=== PATIENT | male | born 1945 | race Caucasian/White ===

== ENCOUNTER → 2020-10-09 12:46 | Outpatient (CLI) | payer MEDICARE, SELFPAY ==
--- NOTE | ~2020-10-09 | XR_ITS ---
XR chest 2V DATE: 10/09/2020 13:30 INDICATION: Nicotine dependence TECHNIQUE: PA and lateral views COMPARISON: 08/17/2018 2 view chest FINDINGS: Bilateral hyperinflation. Stable mild bilateral apical scarring. No pulmonary infiltrate or consolidation, pleural effusion or pulmonary vascular congestion or pneumothorax. Heart size is with in normal range. There is mild aortic calcification and unfolding. No hilar or mediastinal enlargemen t. Included skeletal structures are unremarkable other than and mild degenerative spurring of the thorac ic spine and osteopenia IMPRESSION: Bilateral moderate hyperinflation. No active disease or significant change since 9 Reviewed, dictated and finalized at location B. IMPRESSION: Bilateral moderate hyperinflation. No active disease or significant change since 08/17/2018
--- NOTE | ~2020-10-09 | XR_ITS ---
XR ankle RT min 3V DATE: 10/09/2020 13:30 INDICATION: Right ankle pain TECHNIQUE: 4 views COMPARISON: None FINDINGS: Slight plantar and mild posterior calcaneal enthesopathy. Probable chronic bony ossicle at the dorsal aspect of the talonavicular joint. No apparent recent fracture or dislocation of the ankle or disruption of the ankle mortise is noted o therwise. IMPRESSION: No apparent recent fracture or dislocation Calcaneal enthesopathy Reviewed, dictated and finalized at location B.
== END ==
PROVIDERS: PCP Internal Medicine; Visit Provider Internal Medicine
DX: Z87.891 Personal history of nicotine dependence (principal); M77.31 Calcaneal spur, right foot
CPT/HCPCS: 71046; 73610

== ENCOUNTER 2021-10-16 00:48 | Day surgery (SDC) | payer MEDICARE, SELFPAY ==
[2021-10-02 09:59] VITALS: BMI 24.3
[2021-10-16 09:06] VITALS: BP 139/79; PULSE 57; RESP 18; TEMP 36.6; O2SAT 100
[2021-10-16] MEDS: LACTATED RINGERS 1,000 ML 150 ML IV CONT (09:22)
--- NOTE | 2021-10-16 09:29 | WPDANESEPPF ---
Anes - Initial Pre Proc Eval Procedure: Operation Date: 10/16/21 10:00 Proposed Procedures p Colonoscopy - Rick Woodard MD Date/Time: 10/16/21 09:29 Surgeon: Rick Woodard MD Pre Op Diagnosis: diverticulitis, hx of colon polyps Patient Data Age: 75 Gender: M Height: 1.83 m Weight: 82.5 kg Last Vital Signs Temp 97.9 F 10/16/21 09:06 Pulse 57 L 10/16/21 09:06 Resp 18 10/16/21 09:06 BP 139/79 10/16/21 09:06 Pulse Ox 100 10/16/21 09:06 O2 Del Method Room Air 10/16/21 09:06 Allergies Allergy/AdvReac Type Severity Reaction Status Date / Time Iodinated Contrast Media Allergy Intermediate Rash Verified 10/16/21 09:00 Home Medications Medication Instructions Recorded Confirmed Type atorvastatin 10 mg tablet 5 mg PO DAILY 10/02/21 10/16/21 History cholecalciferol (vitamin D3) 1,250 50,000 unit PO WEEKLY 10/02/21 10/16/21 History mcg (50,000 unit) capsule furosemide 20 mg tablet 20 mg PO 3XW 10/02/21 10/16/21 History levothyroxine 50 mcg tablet 50 mcg PO DAILY 10/02/21 10/16/21 History (Euthyrox) losartan 100 mg tablet 100 mg PO DAILY 10/02/21 10/16/21 History nebivolol 10 mg tablet (Bystolic) 10 mg PO DAILY 10/02/21 10/16/21 History Patient hx anesthesia problems: none Family hx anesthesia problems: none Results Review: All pre-operative results and documents have been reviewed as part of the pre-operative evaluation. [facility] Social History Social History Smoking packs per day: 1 Smoking cigarettes per day: 20.0 Years smoked: 9 Smoking pack-years: 9.00 Smoking status: Former smoker Tobacco type: cigarettes Alcohol intake: current Alcohol use details: 2-3 drinks/month Substance use: never Substance use type: does not use Living arrangements: with family Spiritual care concerns: No Anes - Eval Final PreProcedure Day of Procedure 10/16/21 09:29 Patient weight: normal Heart: regular rate and rhythm Lungs: clear to auscultation Airway: Mallampati scale class II Neurological: alert and oriented Last oral intake: >/= 8 hours ASA classification: III Emergent: no Anesthetic plan: proceed Anesthesia type and monitoring: general GIVS and standard monitoring Results Review: All pre-operative results and documents have been reviewed as part of the pre-operative evaluation. Informed Consent: The patient's anesthetic plan and its attendant risks and benefits were discussed with the patient/family/POA. Questions were solicited and answers provided to the satisfaction of the patient/family/POA.
--- NOTE | 2021-10-16 09:46 | PM.HPGS ---
History of Present Illness History of Present Illness Consent: Risks, benefits, and alternatives have been discussed and questions answered. Patient agrees to proceed with procedure. Chief complaint: diverticulitis, hx of colon polyps Narrative: Rick Rivero is a 75 year old male Referred for colon cancer screening. He has a history of polyps. Two polyps we removed about 4 years ago. Review of Systems Review of Systems: All systems reviewed & are unremarkable except as noted in HPI and below PMFSH Social History Social History Smoking packs per day: 1 Smoking cigarettes per day: 20.0 Years smoked: 9 Smoking pack-years: 9.00 Smoking status: Former smoker Tobacco type: cigarettes Alcohol intake: current Alcohol use details: 2-3 drinks/month Substance use: never Substance use type: does not use Living arrangements: with family Spiritual care concerns: No Meds Home Medications and Allergies Home Medications Medication Instructions Recorded Confirmed Type atorvastatin 10 mg tablet 5 mg PO DAILY 10/02/21 10/16/21 History cholecalciferol (vitamin D3) 1,250 50,000 unit PO WEEKLY 10/02/21 10/16/21 History mcg (50,000 unit) capsule furosemide 20 mg tablet 20 mg PO 3XW 10/02/21 10/16/21 History levothyroxine 50 mcg tablet 50 mcg PO DAILY 10/02/21 10/16/21 History (Euthyrox) losartan 100 mg tablet 100 mg PO DAILY 10/02/21 10/16/21 History nebivolol 10 mg tablet (Bystolic) 10 mg PO DAILY 10/02/21 10/16/21 History Allergies Allergy/AdvReac Type Severity Reaction Status Date / Time Iodinated Contrast Media Allergy Intermediate Rash Verified 10/16/21 09:00 Vital Signs Vital Signs - 24 hr 10/16/21 09:06 Temperature 36.6 C Pulse Rate 57 L Respiratory Rate 18 Blood Pressure 139/79 Pulse Oximetry 100 Oxygen Delivery Room Air Exam Resp: Auscultation: clear to auscultation bilaterally Cardio: Rate: regular rate Rhythm: regular rhythm GI: GI Palp: Yes Soft to palpation and No Tenderness to palpation present (GI) Assessment and Plan Assessment and plan (1) Colon cancer screening: Code(s): Z12.11 - Encounter for screening for malignant neoplasm of colon Status: Acute Plan Colonoscopy with possible biopsy or polypectomy or cautery or injection of substances.
[2021-10-16 10:15] VITALS: BP 95/63; PULSE 57; RESP 20; O2SAT 100
[2021-10-16 10:25] VITALS: BP 112/74; PULSE 53; RESP 20; O2SAT 100
[2021-10-16 10:35] VITALS: BP 124/76; PULSE 53; RESP 18; O2SAT 100
== END 2021-10-16 10:50 | disposition home or self-care (01) ==
PROVIDERS: PCP Internal Medicine; Visit Provider Internal Medicine Gastroenterology
PROC: 0DJD8ZZ Inspection of Lower Intestinal Tract, Via Natural or Artificial Opening Endoscopic (ICD-10-PCS; CPT 45378; principal; 2021-10-16 10:00)
DX: Z12.11 Encounter for screening for malignant neoplasm of colon (principal); Z87.891 Personal history of nicotine dependence; K57.30 Diverticulosis of large intestine without perforation or abscess without bleeding; K64.8 Other hemorrhoids; Z86.010 Personal history of colon polyps
CPT/HCPCS: G0105; J2704; J7120

== ENCOUNTER → 2022-10-08 14:32 | Outpatient (CLI) | payer MEDICARE, SELFPAY ==
--- NOTE | ~2022-10-08 | XR_ITS ---
XR shoulder RT min 2V 10/08/2022 15:15 INDICATION: Right shoulder pain PROCEDURE: 4 views right shoulder COMPARISON: No prior study FINDINGS: Fracture, dislocation or subluxation is not identified. The soft tissues appear within norm al limits. No foreign bodies are identified. IMPRESSION: 1: No significant bone or joint abnormality. Reviewed, dictated and finalized at location B.
--- NOTE | ~2022-10-08 | XR_ITS ---
EXAMINATION:XR cervical spine 4-5V DATE: 10/08/2022 15:14 INDICATION: Neck pain TECHNIQUE: AP, lateral, lateral swimmers and odontoid views of the cervical spine are provided. COMPARISON: Neck CT dated 04/06/2013 FINDINGS: Mild cervical levocurvature. Sagittal alignment is normal. There is 14 degree of increased kyphosis w ith extension and 12 degree decreased kyphosis with flexion measured between the endplates of C2 and C7. No abnormal translatory motion. Odontoid is intact. Normal atlantoaxial interval. Vertebral body heights are normal. Moderate disc height loss with moderate to severe associated uncovertebral osteo arthritis at C4-C5, C5-C6 and C6-C7. Mild disc height loss at C3-C4 and C7-T1. Severe facet osteoarth ritis at C7-T1 with mild to moderate facet osteoarthritis and more cephalad cervical spine. Preverteb ral soft tissues are normal. IMPRESSION: 1. Moderate cervical spondylosis with no abnormal transitory motion with flexion or extension. Reviewed, dictated and finalized at location A. IMPRESSION: 1. Moderate cervical spondylosis with no abnormal transitory motion with flexio n or extension.
== END ==
PROVIDERS: PCP Internal Medicine; Visit Provider Internal Medicine
DX: M25.511 Pain in right shoulder (principal); M47.892 Other spondylosis, cervical region
CPT/HCPCS: 72050; 73030

== ENCOUNTER → 2022-10-13 10:20 | Outpatient (CLI) | payer MEDICARE, SELFPAY ==
--- NOTE | ~2022-10-13 | CT_ITS ---
EXAMINATION: CT abdomen pelvis w con DATE: 10/13/2022 10:49 INDICATION: Abdominal pain TECHNIQUE: Computed tomography (CT) of the abdomen and pelvis was performed with 100 mL Omnipaque-350 intravenous contrast. Automated exposure control and iterative reconstruction technique were employe d. The dose-length product was 655.55 mGy-cm. COMPARISON: None FINDINGS: Lung bases are clear. Heart size is normal. No pericardial or pleural effusion. Multiple hepatic and splenic calcific lesions consistent with old granulomatous disease. Gallbladder, pancreas and bilater al adrenal glands are normal. Bilateral renal cysts the largest on the right measuring 3 cm. There ar e 4 nonobstructing stones in the right kidney the largest at a lower pole calyx measuring 6 mm. Moder ate scattered diverticulosis without adjacent from trace stranding to suggest diverticulitis. Small b owel and appendix are normal. Bladder is normal. Prostatomegaly. No free intraperitoneal gas or fluid . No pathologically enlarged abdominal or pelvic lymphadenopathy. There is calcified atherosclerosis of the aorta and many of the other arteries. Severe lumbar and moderate lower thoracic spondylosis. IMPRESSION: 1. Nonobstructing nephrolithiasis. 2. Diverticulosis. 3. Prostatomegaly. Reviewed, dictated and finalized at location A.
[2022-10-13 10:41] LABS: Estimated Glomerular Filt Rate > 60
== END ==
PROVIDERS: PCP Internal Medicine; Visit Provider Internal Medicine
DX: R10.9 Unspecified abdominal pain (principal); K57.30 Diverticulosis of large intestine without perforation or abscess without bleeding; N20.0 Calculus of kidney; N40.0 Benign prostatic hyperplasia without lower urinary tract symptoms
CPT/HCPCS: 74177; Q9967

== ENCOUNTER → 2023-07-17 08:57 | Outpatient (CLI) | payer MEDICARE, SELFPAY ==
--- NOTE | ~2023-07-17 | MR_ITS ---
EXAMINATION: MR orbits face neck wo/w con DATE: 07/17/2023 09:49 INDICATION: Several months of intermittent pain behind the right eye TECHNIQUE: Magnetic resonance imaging (MRI) of the brain and brainstem was performed without and with 15 mL Multihance intravenous contrast. Sequences included sagittal and axial T1-weighted SE, axial d iffusion-weighted FS EPI, axial T2*-weighted GRE, axial T2-weighted FLAIR Propeller, and axial T2-joshua ghted Propeller. Small bopbn-th-ahjr sequences of the orbits included coronal and axial T2-weighted F S FSE and T1-weighted FSE. Postcontrast sequences included axial T1-weighted SE and small field-of-vi ews axial and coronal T1-weighted FS FSE. Apparent diffusion coefficient (ADC) maps were created. COMPARISON: None. FINDINGS: There are no areas of restricted diffusion to suggest acute infarction. No intracranial hemorrhage or abnormal intracranial mass lesion. There are scattered areas of nonspecific increased T2-weighted si gnal intensity in the cerebral white matter, predominantly involving the deep and periventricular whi te matter. There are no intraparenchymal signal abnormalities seen on the other pulse sequences. The ventricles are symmetric and normal in size. There are no abnormal extra-axial fluid collections. David w voids are seen in the cerebral arteries on the T2-weighted sequences consistent with their expected patency. No areas of abnormal enhancement on the postcontrast images. Specifically there is no evide nt swelling or abnormal enhancement along the optic nerves. Indeterminate 2 x 3 mm T2 hyperintense le juan m without evident enhancement seen only on the thin coronal T2 weighted sequence 9, image 17 locat ed along the right inferior eyelid. Orbits are otherwise normal. Large left mastoid effusion. There i s mild mucoperiosteal thickening at the ethmoid sinuses. IMPRESSION: 1. Scattered nonspecific white matter T2 hyperintensity which is within normal limits for age and lik marixa sequela of chronic small vessel ischemic disease. No acute intracranial process. 2. 2-3 mm T2 hyperintense nonenhancing, potentially cystic lesion positioned along the right inferior eyelid. Otherwise normal orbits. 3. Large left mastoid effusion. Reviewed, dictated and finalized at location A. ER MARKER IMPRESSION: 1. Scattered nonspecific white matter T2 hyperintensity which is within normal limits for age and likely sequela of chronic small vessel ischemic disease. No acute intracranial process. 2. 2-3 mm T2 hyperintense nonenhancing, potentially cystic lesion positioned al marty the right inferior eyelid. Otherwise normal orbits. 3. Large left mastoid effusion.
== END ==
PROVIDERS: PCP Internal Medicine; Visit Provider Internal Medicine
DX: H02.821 Cysts of right upper eyelid (principal); R90.82 White matter disease, unspecified; H74.8X2 Other specified disorders of left middle ear and mastoid
CPT/HCPCS: 70543; A9577

== ENCOUNTER 2024-05-26 16:37 | Outpatient (CLI) | payer MEDICARE, SELFPAY ==
--- NOTE | ~2024-05-26 | XR_ITS ---
XR hip RT min 2V Ordering provider: Crispin Marcano ([place]), History: . Pain in hip joint . Comparison: None. FINDINGS: BONES: No acute fracture or dislocation. HIP JOINT SPACES: severe right hip osteoarthritic changes. SACROILIAC JOINT SPACES/LUMBAR SPINE: The sacroiliac joint spaces are normal. Mild degenerative webber es of the visualized lower lumbar spine. PUBIC SYMPHYSIS: Normal. SOFT TISSUES: Normal. IMPRESSION: No acute osseous abnormality pelvis and right hip. Severe right hip osteoarthritic changes. Reviewed, dictated and finalized at location A. LIARY OPERATOR
== END 2024-05-26 16:38 | disposition home or self-care (01) ==
LOC: MICIMG 16:38
PROVIDERS: PCP Internal Medicine; Visit Provider Internal Medicine
DX: M16.11 Unilateral primary osteoarthritis, right hip (principal)
CPT/HCPCS: 73502